=== PATIENT | male | born 1995 | race Caucasian/White ===

== ENCOUNTER 2016-05-02 10:19 | Emergency (ER) | payer OTHER ==
[~2016-05-02 10:19] MED LIST: HYDROmorphONE/DILAUDID 1 MG/ML SYR IVP ONE
[2016-05-02] MEDS ORDERED: NS 1,000 ML IV ONE ×2 (10:37→11:59)
[2016-05-02] MEDS ORDERED: ONDANSETRON 4 MG/2 ML VIAL IVP ONE ×3 (10:37→15:00)
[2016-05-02] MEDS ORDERED: HYDROmorphONE/DILAUDID 1 MG/ML SYR ONE ×2 (10:39→12:16)
[2016-05-02 10:55] LABS: % IMMATURE GRANULYOCYTES 0.3 % (0.0-1.1); ABSOLUTE IMMATURE GRANULOCYTES 0.03 10^3/uL (0.00-0.10); ADD DIFF? NO; ADD MORPH? NO; ADD SCAN? NO; ATYPICAL LYMPHOCYTE FLAG 20 (0-99); FRAGMENT RBC FLAG 0 (0-99); HEMATOCRIT 45.1 % (40.0-51.0); HEMOGLOBIN 16.7 g/dL (13.7-17.5); LEFT SHIFT FLG 10 (0-99); LIPEMIA HEMOLYSIS FLAG 90 (0-99); MEAN CELL HEMOGLOBIN 32.6 pg (27.9-34.1); MEAN CELL VOLUME 87.9 fL (81.5-99.8); MEAN PLATELET VOLUME 8.6 fL (8.7-11.7); PLATELET CLUMPS FLAG 0 (0-99); PLATELET COUNT 247 10^3/uL (150-400); RED BLOOD CELL COUNT 5.13 10^6/uL (4.40-6.38); RED CELL DISTRIBUTION WIDTH 11.5 % (11.5-15.2)
[2016-05-02 11:23] LABS: ANION GAP 12 mEq/L (8-16); CALCIUM 10.1 mg/dL (8.5-10.4); CARBON DIOXIDE 26 mEq/l (22-31); CHLORIDE 104 mEq/L (97-110); CREATININE 1.5 mg/dL (0.7-1.3); GLOMERULAR FILTRATION RATE 59; GLUCOSE 92 mg/dL (70-100); POTASSIUM 4.2 mEq/L (3.5-5.2); SODIUM 142 mEq/L (134-144)
--- NOTE | 2016-05-02 11:30 | EDPHY ---
H & P Stated Complaint: BILAT flank pain,nausea vominting, sudden onset this am HPI/ROS: CHIEF COMPLAINT: Flank pain HISTORY OF PRESENT ILLNESS: sudden onset of right-sided flank pain late last night. It is located right over the right CVA margin. Radiates to the right abdomen. No testicular pain. No trauma. No nausea or vomiting. Severe pain with no position of comfort. Worse with any palpation or movement. No alleviating factors. No history of kidney stones. No hematuria. No other associated complaints or modifying factors. REVIEW OF SYSTEMS: Ten systems reviewed and are negative unless otherwise noted in the HPI EXAMINATION General Appearance: Alert, no distress , comfortable, restless Head: normocephalic, atraumatic Eyes: Pupils equal and round, no conjunctival pallor or injection ENT, Mouth: Mucous membranes moist Neck: Normal inspection, supple, non-tender Respiratory: Lungs are clear to auscultation Cardiovascular: Regular rate and rhythm Gastrointestinal: Abdomen is soft and nontender, there is moderate right CVA tenderness. No tympany. No rigidity. Back: non-tender, no bony abnormalities Neurological: A&O, nonfocal, normal gait Skin: Warm and dry, no rash Extremities: Nontender, no pedal edema Psychiatric: Mood and affect normal DIFFERENTIAL DIAGNOSES: 1. Kidney stones 2. flank pain 3. UTI 4. musculoskeletal pain 5. Pyelonephritis MDM: Acute right flank pain with a benign abdominal examination. No testicular pain. Patient does have the history and exam consistent with kidney stone. Vital signs stable. Labs and CT scan are pending at this time. 13:40 Notified by radiologist that there is bilateral perinephric stranding, but there is very mild hydronephrosis, but there is no evidence of stone. No other intra-abdominal or pelvic pathology. Suspect pyelonephritis by CT scan. I have re-evaluated the patient at this time, he notes some nausea but no active vomiting. He is asking for intake by mouth. He has received 0.5 L of IV fluid. He does have leukocytosis, flank pain, and is having difficulty urinating. Will continue IV fluid resuscitation and await urinalysis. He is not tachycardic. He is not tachypneic. He is not hypotensive. He is afebrile. 14:45 I have re-evaluated the patient. He is feeling better and tolerating intake by mouth. He remains hemodynamically stable with completely normal vital signs. Labs revealed a leukocytosis with a very mildly elevated creatinine 1.5. CT scan as noted above. Urinalysis only has minimal blood. No definite pyuria. Possible pyelo versus stone. Patient would like to be discharged home. His pain is tolerated at this time. Discharged home with antibiotics, pain medication and nausea medication and strict ER precautions for worsening pain, fever, nausea or vomiting. Patient is comfortable with this plan and stable for discharge home. SUPERVISION: Independent evaluation. Source: Patient Exam Limitations: No limitations - Personal History Current Tetanus/Diphtheria Vaccine: Unsure Current Tetanus Diphtheria and Acellular Pertussis (TDAP): Unsure - Medical/Surgical History Hx Asthma: No Hx Chronic Respiratory Disease: No Hx Diabetes: No Hx Cardiac Disease: No Hx Renal Disease: No Hx Cirrhosis: No Hx Alcoholism: No Hx HIV/AIDS: No Hx Splenectomy or Spleen Trauma: No Other PMH: PMH:none. PSH:dental - Social History Smoking Status: Never smoked Constitutional: Initial Vital Signs Temperature (C) 97.5 F 05/02/16 10:22 Heart Rate 75 05/02/16 10:22 Respiratory Rate 16 05/02/16 10:22 Blood Pressure 144/104 H 05/02/16 10:22 O2 Sat (%) 98 05/02/16 10:22 O2 Delivery Mode Room Air Allergies/Adverse Reactions: No Known Allergies Allergy (Unverified 05/02/16 10:22) Home Medications: Medication Instructions Recorded Ciprofloxacin [Cipro] 500 mg PO BID #14 tab 05/02/16 Ondansetron Odt [Zofran Odt 4 mg 4 mg PO Q4 PRN #12 tab 05/02/16 (*)] oxyCODONE HCL/ACETAMINOPHEN 1 each PO Q4-6PRN PRN #20 tablet 05/02/16 [Percocet 5-325 mg Tablet] Medical Decision Making - Data Points Laboratory Results: Laboratory Results 05/02/16 10:35 05/02/16 10:35 05/02/16 05/02/16 14:00 10:35 WBC 10.95 H 10^3/uL (3.80-9.50) RBC 5.13 10^6/uL (4.40-6.38) Hgb 16.7 g/dL (13.7-17.5) Hct 45.1 % (40.0-51.0) MCV 87.9 fL (81.5-99.8) MCH 32.6 pg (27.9-34.1) MCHC 37.0 H g/dL (32.4-36.7) RDW 11.5 % (11.5-15.2) Plt Count 247 10^3/uL (150-400) MPV 8.6 L fL (8.7-11.7) Neut % (Auto) 72.6 % (39.3-74.2) Lymph % (Auto) 12.8 L % (15.0-45.0) [place] % (Auto) 11.9 % (4.5-13.0) Eos % (Auto) 2.0 % (0.6-7.6) Baso % (Auto) 0.4 % (0.3-1.7) Nucleat RBC Rel Count 0.0 % (0.0-0.2) Absolute Neuts (auto) 7.96 H 10^3/uL (1.70-6.50) Absolute Lymphs (auto) 1.40 10^3/uL (1.00-3.00) Absolute Monos (auto) 1.30 H 10^3/uL (0.30-0.80) Absolute Eos (auto) 0.22 10^3/uL (0.03-0.40) Absolute Basos (auto) 0.04 10^3/uL (0.02-0.10) Absolute Nucleated RBC 0.00 10^3/uL (0-0.01) Immature Gran % 0.3 % (0.0-1.1) Immature Gran # 0.03 10^3/uL (0.00-0.10) Sodium 142 mEq/L (134-144) Potassium 4.2 mEq/L (3.5-5.2) Chloride 104 mEq/L (97-110) Carbon Dioxide 26 mEq/l (22-31) Anion Gap 12 mEq/L (8-16) BUN 10 mg/dL (7-23) Creatinine 1.5 H mg/dL (0.7-1.3) Estimated GFR 59 Glucose 92 mg/dL (70-100) Calcium 10.1 mg/dL (8.5-10.4) Lipase 112.0 IU/L (23-300) Urine Color PALE YELLOW Urine Appearance CLEAR Urine pH 6.0 (5.0-7.5) Ur Specific [place] 1.004 (1.002-1.030) Urine Protein NEGATIVE (NEGATIVE) Urine Ketones NEGATIVE (NEGATIVE) Urine Blood 1+ H (NEGATIVE) Urine Nitrate NEGATIVE (NEGATIVE) Urine Bilirubin NEGATIVE (NEGATIVE) Urine Urobilinogen NEGATIVE EU (0.2-1.0) Ur Leukocyte Esterase NEGATIVE (NEGATIVE) Urine RBC 1-3 /hpf (0-3) Urine WBC 1-3 /hpf (0-3) Ur Epithelial Cells TRACE /lpf (NONE-1+) Ur Culture Indicated? NOT INDICATED (NI) Urine Glucose NEGATIVE (NEGATIVE) Medications Given: Discontinued Medications Hydromorphone HCl (Dilaudid) 1 mg IVP EDNOW ONE Stop: 05/02/16 08:01 Last Admin: 05/02/16 10:40 Dose: 1 mg Hydromorphone HCl (Dilaudid) 1 mg IVP EDNOW ONE Stop: 05/02/16 08:01 Last Admin: 05/02/16 12:24 Dose: 1 mg Sodium Chloride (Ns) 1,000 mls @ 0 mls/hr IV ONCE ONE PRN Reason: Wide Open Stop: 05/02/16 10:38 Last Admin: 05/02/16 10:37 Dose: 1,000 mls Sodium Chloride (Ns) 1,000 mls @ 0 mls/hr IV ONCE ONE PRN Reason: Wide Open Stop: 05/02/16 12:00 Last Admin: 05/02/16 12:21 Dose: 1,000 mls Ondansetron HCl (Zofran) 4 mg IVP EDNOW ONE Stop: 05/02/16 10:38 Last Admin: 05/02/16 10:40 Dose: 4 mg Ondansetron HCl (Zofran) 4 mg IVP EDNOW ONE Stop: 05/02/16 12:15 Last Admin: 05/02/16 12:15 Dose: 4 mg Departure - Departure Disposition: Home, Routine, Self-Care Clinical Impression: Acute flank pain, Pyelonephritis Condition: Good Instructions: Urinary Tract Infection in Men (ED), Flank Pain (ED) Additional Instructions: Take antibiotic to completion. Nausea medication and pain medication as prescribed with caution. Strict ER precautions for worsening pain, fever, vomiting or difficulty urinating. Prescriptions: Ciprofloxacin [Cipro] 500 mg PO BID #14 tab oxyCODONE HCL/ACETAMINOPHEN [Percocet 5-325 mg Tablet] 1 each PO Q4-6PRN PRN # 20 tablet PRN Reason: Pain, Moderate Ondansetron Odt [Zofran Odt 4 mg (*)] 4 mg PO Q4 PRN #12 tab PRN Reason: Nausea/Vomiting, Use 1st
--- NOTE | 2016-05-02 13:57 | CT ---
CT Abdomen and Pelvis Unenhanced (Renal Stone Protocol) Indication: Bilateral flank pain. Comparison: None available. Technique: Axial unenhanced CT imaging was performed through the abdomen and pelvis without contrast . Dose reduction techniques were utilized. Findings: Abdomen: The lung bases are clear. The imaged noncontrast portions of the liver, gallbladder, pancreas and adrenal glands are unremarkab le. The spleen is enlarged, measuring 14 cm. There is prominent perinephric stranding bilaterally, w ith no renal or ureteral stones and no obstructive uropathy. Renal assessment is limited by the unenh anced technique. Moderate stool is present in the proximal colon. The colon and small bowel are normal caliber. The ap pendix is normal. The aorta is normal caliber. The bones are normal. Pelvis: No bladder or distal ureteral calcifications are identified. The bones are normal. Impression: 1. Nonspecific bilateral perinephric stranding with no obstructive uropathy or renal or ureteral ston es. This could be related to pyelonephritis but is nonspecific. 2. Mild splenomegaly. Findings discussed with DOMINIQUE Mansfield in the Emergency Department today at 1350 hours. Attention: This CT examination is specifically designed to evaluate patients who are clinically susp ected of having acute obstructive uropathy. This examination does not use radiographic contrast, and as such, provides only a limited evaluation of the abdomen, pelvis and retroperitoneum. If there i s further clinical suspicion for pathological conditions other than obstructive uropathy, a complete CT evaluation of the abdomen and pelvis utilizing intravenous, oral, and rectal contrast should be co nsidered.
[2016-05-02] MEDS ORDERED: CIPROFLOXACIN 400 MG/DEXTROSE 200 ML IV ONE (14:13)
[2016-05-02 14:19] LABS: COLOR PALE YELLOW; LEUKOCYTE ESTERASE,URINE NEGATIVE (NEGATIVE); NITRITE,URINE NEGATIVE (NEGATIVE)
[2016-05-02] MEDS ORDERED: OXYCODONE/APAP 5/325 TAB PO ONE (14:44)
[2016-05-02] MEDS ORDERED: HYDROmorphONE/DILAUDID 1 MG/ML SYR IVP ONE (14:44)
[2016-05-02] MEDS ORDERED: PROMETHAZINE HCL 25 MG/ML VIAL IM ONE (15:00)
[2016-05-02] MEDS ORDERED: PROMETHAZINE HCL 25 MG/ML VIAL IVP ONE (15:06)
[2016-05-02] MEDS ORDERED: HALOPERIDOL LACT 5 MG/ML INJ IVP ONE (17:33)
[2016-05-02] MEDS ORDERED: HALOPERIDOL LACT 5 MG/ML INJ ONE (17:34)
[2016-05-02 19:01] VITALS: BP 158/96; PULSE 58; RESP 14; TEMP 98.4; O2SAT 92
[2016-05-04 08:24] LABS: CHLAMYDIA AMPLIFICATION GENPRB NEGATIVE (NEGATIVE)
== END 2016-05-02 19:01 | disposition home or self-care (01) ==
DX: N12 Tubulo-interstitial nephritis, not specified as acute or chronic (principal)
CPT/HCPCS: 96365; J0744; J1170; J2405; J2550

== ENCOUNTER 2016-05-04 20:51 | Observation (INO) | payer OTHER ==
[2016-05-04] MEDS ORDERED: NS 1,000 ML IV ONE ×2 (21:14→23:46)
[2016-05-04] MEDS ORDERED: ONDANSETRON 4 MG/2 ML VIAL IVP ONE (21:29)
[2016-05-04 21:42] LABS: % IMMATURE GRANULYOCYTES 0.3 % (0.0-1.1); ABSOLUTE IMMATURE GRANULOCYTES 0.03 10^3/uL (0.00-0.10); ADD DIFF? NO; ADD MORPH? NO; ADD SCAN? NO; ATYPICAL LYMPHOCYTE FLAG 0 (0-99); FRAGMENT RBC FLAG 0 (0-99); HEMOGLOBIN 14.5 g/dL (13.7-17.5); LEFT SHIFT FLG 0 (0-99); LIPEMIA HEMOLYSIS FLAG 90 (0-99); MEAN CELL HEMOGLOBIN CONCENTR. 37.2 g/dL (32.4-36.7); MEAN CELL VOLUME 88.6 fL (81.5-99.8); MEAN PLATELET VOLUME 8.2 fL (8.7-11.7); PLATELET CLUMPS FLAG 0 (0-99); PLATELET COUNT 209 10^3/uL (150-400); RED CELL DISTRIBUTION WIDTH 11.5 % (11.5-15.2)
[2016-05-04 21:57] LABS: ALANINE AMINOTRANSFERASE 33 IU/L (21-72); ALBUMIN 3.7 g/dL (3.5-5.0); ALKALINE PHOSPHATASE 47 IU/L (38-126); ANION GAP 8 mEq/L (8-16); ASPARTATE AMINOTRANSFERASE 25 IU/L (17-59); BILIRUBIN,TOTAL 0.7 mg/dL (0.1-1.4); BILIRUBIN-CONJUGATED 0.3 mg/dL (0.0-0.5); BILIRUBIN-UNCONJUGATED 0.4 mg/dL (0.0-1.1); CALCIUM 8.7 mg/dL (8.5-10.4); CARBON DIOXIDE 29 mEq/l (22-31); CHLORIDE 100 mEq/L (97-110); GLOMERULAR FILTRATION RATE 42; GLUCOSE 82 mg/dL (70-100); POTASSIUM 3.8 mEq/L (3.5-5.2); SODIUM 137 mEq/L (134-144); TOTAL PROTEIN 6.7 g/dL (6.3-8.2)
--- NOTE | 2016-05-04 22:09 | EDPHY ---
H & P Stated Complaint: ongoing flank pain, recent infection - Personal History Current Tetanus/Diphtheria Vaccine: Yes - Medical/Surgical History Hx Asthma: No Hx Chronic Respiratory Disease: No Hx Diabetes: No Hx Cardiac Disease: No Hx Renal Disease: No Hx Cirrhosis: No Hx Alcoholism: No Hx HIV/AIDS: No Hx Splenectomy or Spleen Trauma: No Other PMH: PMH:kidney infection. PSH:dental - Social History Smoking Status: Never smoked HPI/ROS: CHIEF COMPLAINT: Flank pain, abdominal pain, nausea HISTORY OF PRESENT ILLNESS: approximately 1 week of flank pain, for which I saw the patient 2 days ago in this department. Upon discharge home he was feeling much better on Sunday until yesterday morning. At that time the flank pain returned and instead of being right-sided now bilateral. Associated with some nausea but no vomiting. Mild to moderate pain. Worse with palpation and movement. No position of comfort. No radiating pain. Generalized abdominal pain accompanied. No fever. No chills. No hematuria. No diarrhea or constipation. Has been taking the prescribed medications since Sunday, they are no longer improving his pain. No other associated complaints or modifying factors. REVIEW OF SYSTEMS: Ten systems reviewed and are negative unless otherwise noted in the HPI EXAMINATION: General Appearance: Alert, no distress Head: normocephalic, atraumatic Eyes: Pupils equal and round, no conjunctival pallor or injection ENT, Mouth: Mucous membranes moist Neck: Normal inspection, supple, non-tender Respiratory: Lungs are clear to auscultation Cardiovascular: Regular rate and rhythm Gastrointestinal: Abdomen is soft and nontender. Mild bilateral CVA tenderness.No tympany. No rigidity. Non-acute abdomen. Back: non-tender, no bony abnormalities Neurological: A&O, nonfocal, normal gait Skin: Warm and dry, no rash Extremities: Nontender, no pedal edema Psychiatric: Mood and affect normal DIFFERENTIAL DIAGNOSES: Including but not limited to UTI, Pyelonephritis, renal lithiasis, ureterolithiasis. MDM: Ongoing flank and abdominal pain. Patient was seen by this provider 2 days ago. At that time he was offered admission but preferred to be discharged home. He was stable for discharge home at that time, and reports that he was feeling much better that evening. However he now has return of his pain and nausea but no vomiting. Vital signs are stable. Labs are pending at this time. 23:45 Acute kidney injury of uncertain etiology. Patient has an improving leukocytosis, but his creatinine has gone up to 2.0 today. We are providing IV fluid resuscitation. His pain is minimally improved. I will contact the hospitalist for admission for further care. Patient is comfortable with this plan and will be admitted in stable condition. 12:08 I discussed the case with Dr. Warner, and she will admit the patient to observation status at this time. Patient remains hemodynamically stable. SUPERVISION:Patient was evaluated in conjunction with the supervising physician. Please see their note for details. (Mynor Lu) Constitutional: Initial Vital Signs Temperature (C) 36.9 C 05/04/16 20:53 Heart Rate 95 05/04/16 20:53 Respiratory Rate 19 05/04/16 20:53 Blood Pressure 139/88 H 05/04/16 20:53 O2 Sat (%) 96 05/04/16 20:53 O2 Delivery Mode Nasal Cannula O2 (L/minute) 2 Allergies/Adverse Reactions: No Known Allergies Allergy (Unverified 05/02/16 10:22) Home Medications: Medication Instructions Recorded Ciprofloxacin [Cipro] 500 mg PO BID #14 tab 05/02/16 Ondansetron Odt [Zofran Odt 4 mg 4 mg PO Q4 PRN #12 tab 05/02/16 (*)] oxyCODONE HCL/ACETAMINOPHEN 1 each PO Q4-6PRN PRN #20 tablet 05/02/16 [Percocet 5-325 mg Tablet] Medical Decision Making Other Provider: ED PA DICTATION I evaluated and participated in the management of the patient. I also evaluated the patient independently. My co-signature indicates that I have reviewed this chart and I agree with the findings and plan of care as documented. My personal H&P findings include: This is a 20-year-old man who presents with now bilateral flank pain associated with nausea. He was seen a few days ago here and had a CT scan showing fat stranding surrounding both kidneys, UA was unremarkable except for small amount of hematuria. He went home on ciprofloxacin but was not feeling any better, so returns now to the emergency room. Here, he has a slight elevation in his creatinine. It is unclear if his presentation is related to pyelonephritis with normal UA verses other kidney problem such as glomerulonephritis. He will be admitted to the hospitalist service for observation and IV fluids. He is in agreement with this plan. (Alice Walters) - Data Points Laboratory Results: Laboratory Results 05/04/16 21:35 05/04/16 21:35 05/04/16 05/04/16 22:58 21:35 WBC 10.00 H 10^3/uL (3.80-9.50) RBC 4.40 10^6/uL (4.40-6.38) Hgb 14.5 g/dL (13.7-17.5) Hct 39.0 L % (40.0-51.0) MCV 88.6 fL (81.5-99.8) MCH 33.0 pg (27.9-34.1) MCHC 37.2 H g/dL (32.4-36.7) RDW 11.5 % (11.5-15.2) Plt Count 209 10^3/uL (150-400) MPV 8.2 L fL (8.7-11.7) Neut % (Auto) 56.6 % (39.3-74.2) Lymph % (Auto) 28.0 % (15.0-45.0) [place] % (Auto) 12.4 % (4.5-13.0) Eos % (Auto) 2.3 % (0.6-7.6) Baso % (Auto) 0.4 % (0.3-1.7) Nucleat RBC Rel Count 0.0 % (0.0-0.2) Absolute Neuts (auto) 5.66 10^3/uL (1.70-6.50) Absolute Lymphs (auto) 2.80 10^3/uL (1.00-3.00) Absolute Monos (auto) 1.24 H 10^3/uL (0.30-0.80) Absolute Eos (auto) 0.23 10^3/uL (0.03-0.40) Absolute Basos (auto) 0.04 10^3/uL (0.02-0.10) Absolute Nucleated RBC 0.00 10^3/uL (0-0.01) Immature Gran % 0.3 % (0.0-1.1) Immature Gran # 0.03 10^3/uL (0.00-0.10) VBG Lactic Acid 0.6 L mmol/L (0.7-2.1) Sodium 137 mEq/L (134-144) Potassium 3.8 mEq/L (3.5-5.2) Chloride 100 mEq/L (97-110) Carbon Dioxide 29 mEq/l (22-31) Anion Gap 8 mEq/L (8-16) BUN 18 mg/dL (7-23) Creatinine 2.0 H mg/dL (0.7-1.3) Estimated GFR 42 Glucose 82 mg/dL (70-100) Calcium 8.7 mg/dL (8.5-10.4) Total Bilirubin 0.7 mg/dL (0.1-1.4) Conjugated Bilirubin 0.3 mg/dL (0.0-0.5) Unconjugated Bilirubin 0.4 mg/dL (0.0-1.1) AST 25 IU/L (17-59) ALT 33 IU/L (21-72) Alkaline Phosphatase 47 IU/L (38-126) Total Protein 6.7 g/dL (6.3-8.2) Albumin 3.7 g/dL (3.5-5.0) Lipase 94.0 IU/L (23-300) Urine Color PALE YELLOW Urine Appearance CLEAR Urine pH 6.0 (5.0-7.5) Ur Specific [place] 1.003 (1.002-1.030) Urine Protein NEGATIVE (NEGATIVE) Urine Ketones NEGATIVE (NEGATIVE) Urine Blood 1+ H (NEGATIVE) Urine Nitrate NEGATIVE (NEGATIVE) Urine Bilirubin NEGATIVE (NEGATIVE) Urine Urobilinogen NEGATIVE EU (0.2-1.0) Ur Leukocyte Esterase NEGATIVE (NEGATIVE) Urine RBC 1-3 /hpf (0-3) Urine WBC 1-3 /hpf (0-3) Ur Epithelial Cells TRACE /lpf (NONE-1+) Urine Bacteria TRACE H /hpf (NONE SEEN) Ur Culture Indicated? NOT INDICATED (NI) Urine Glucose NEGATIVE (NEGATIVE) Medications Given: Discontinued Medications Fentanyl (Sublimaze) 75 mcg IV EDNOW ONE Stop: 05/04/16 23:51 Last Admin: 05/04/16 23:57 Dose: 75 mcg Sodium Chloride (Ns) 1,000 mls @ 0 mls/hr IV ONCE ONE PRN Reason: Wide Open Stop: 05/04/16 21:15 Last Admin: 05/04/16 21:33 Dose: 1,000 mls Sodium Chloride (Ns) 1,000 mls @ 0 mls/hr IV ONCE ONE PRN Reason: Wide Open Stop: 05/04/16 23:47 Last Admin: 05/04/16 23:57 Dose: 1,000 mls Morphine Sulfate (Morphine) 6 mg IVP Q1HR PRN PRN Reason: Pain, Moderate Stop: 05/04/16 22:01 Last Admin: 05/05/16 01:30 Dose: 4 mg Ondansetron HCl (Zofran) 4 mg IVP EDNOW ONE Stop: 05/04/16 21:30 Last Admin: 05/04/16 21:40 Dose: 4 mg Departure - Departure Disposition: [facility] Inpatient Acute Clinical Impression: Flank pain, Abdominal pain, Acute kidney injury (nontraumatic) Condition: Good
[2016-05-04 23:14] LABS: COLOR PALE YELLOW; LEUKOCYTE ESTERASE,URINE NEGATIVE (NEGATIVE); NITRITE,URINE NEGATIVE (NEGATIVE)
[2016-05-04 23:39] LABS: BACTERIA TRACE /hpf (NONE SEEN)
[2016-05-04] MEDS ORDERED: fentaNYL 100 MCG/2 ML INJ IV ONE (23:50)
[2016-05-04] MEDS ORDERED: fentaNYL 100 MCG/2 ML INJ ONE (23:52)
[2016-05-05] MEDS ORDERED: PROMETHAZINE HCL 25 MG/ML VIAL IVP PRN ×2 (02:40→09:49)
[2016-05-05] MEDS ORDERED: oxyCODONE IR 5 MG TAB PO PRN (02:40)
[2016-05-05] MEDS ORDERED: ONDANSETRON 4 MG/2 ML VIAL IVP PRN ×2 (02:40→09:49)
[2016-05-05] MEDS ORDERED: ACETAMINOPHEN 325 MG TAB PO PRN (02:40)
[2016-05-05] MEDS ORDERED: NS 1,000 ML IV SCH (02:45)
--- NOTE | 2016-05-05 03:07 | GHP ---
[f rep st] HISTORY AND PHYSICAL DATE OF ADMISSION: 05/05/2016 CHIEF COMPLAINT: Flank pain. HISTORY: The patient is a 20-year-old male seen in the emergency room 2 days ago for right-sided fla nk pain. This was radiating to the right side of his abdomen. There was no testicular pain. He got a CT scan of the abdomen that was negative for stone, but it did show some bilateral perinephric str anding and mild hydronephrosis. His urinalysis was negative for infection. He was treated for nause a and discharged from the emergency room. He now re-presents to the emergency room with worsening of the pain. It is now on his bilateral flan ks. He has had ongoing nausea, as well as some vomiting. He denies any changes in his urine. PAST MEDICAL HISTORY: Negative. PAST SURGICAL HISTORY: [place] teeth. MEDICATIONS: Please see computer record for full detailed list. ALLERGIES: No known drug allergies. SOCIAL HISTORY: He is a daily smoker of marijuana. No tobacco, occasional alcohol. He is a student at [employer], lives in an apartment. His parents are in [place]. REVIEW OF SYSTEMS: Complete review of systems obtained. Review of systems is negative for constitut ional, HEENT, GI, pulmonary, cardiovascular, , hematology, musculoskeletal, endocrine, and psych, e xcept for positive and negative as in HPI. FAMILY HISTORY: Both his parents are alive and healthy. He denies any significant family history. PHYSICAL EXAMINATION: GENERAL: Well-developed, well-nourished male, in no acute distress. VITAL SI GNS: Temperature is 36.9, pulse 81, blood pressure 152/96, saturating 96% on room air. EYES: Ruchi l conjunctivae. Pupils react to light. ENT: Normal ears and nose. Hearing intact. Normal teeth. Oropharynx moist. NECK: Trachea midline. No thyromegaly. CHEST: Normal. RESPIRATORY: Lungs cl ear to auscultation bilaterally. CARDIOVASCULAR: Regular rhythm. No murmur. No lower extremity ed pippa. ABDOMEN: Soft. Minimal tenderness. No hepatosplenomegaly. SKIN: Warm, dry, intact. No rick h. MUSCULOSKELETAL: No cyanosis or clubbing. Strength 5/5 of all extremities. NEURO: Cranial ner ves intact. Normal sensation to light touch. PSYCHOSOCIAL: Alert and oriented x3. Normal affect. Normal judgment and insight. Normal memory. LABORATORY DATA: White count of 10.8, hematocrit 39.0, platelets 209. Sodium 137, potassium 3.8, ch loride 100, bicarb 29, BUN 18, creatinine 2.0, glucose 82. LFTs are negative. Lipase 94. Lactate 0 .6. Urinalysis is negative except for 1+ blood. CT scan of the abdomen and pelvis from 2 days ago w as reviewed. There was some perinephric stranding and some hydro, and there was concern for possible pyelonephritis. ASSESSMENT/PLAN: 1. Acute renal failure. I suspect he is dehydrated. Will hydrate overnight with IV fluids and rech eric in the morning. 2. Bilateral flank pain. Urinalysis is negative for infection essentially ruling out pyelonephritis . CT scan has been negative for stone. Interestingly, he did have some hydronephrosis on CAT scan, however, of unclear etiology. I will check a followup renal ultrasound, especially since his pain skinner s increased and is now bilateral. He is requesting IV morphine for pain, and he appears uncomfortabl e so will continue. 3. Obesity. BMI 33. Weight loss should be advised. CODE STATUS: Full. ADMISSION STATUS: 1. Will admit to observation. Anticipate only 1 midnight required. 2. DVT prophylaxis. He is low risk. We will hold off on any pharmacologic prophylaxis at this time . /[id number]/MODL
[2016-05-05] MEDS ORDERED: oxyCODONE IR 5 MG TAB ONE (03:27)
[2016-05-05 06:20] LABS: % IMMATURE GRANULYOCYTES 0.3 % (0.0-1.1); ABSOLUTE IMMATURE GRANULOCYTES 0.03 10^3/uL (0.00-0.10); ADD DIFF? NO; ADD MORPH? NO; ADD SCAN? NO; ATYPICAL LYMPHOCYTE FLAG 0 (0-99); FRAGMENT RBC FLAG 0 (0-99); HEMATOCRIT 36.9 % (40.0-51.0); HEMOGLOBIN 13.3 g/dL (13.7-17.5); LEFT SHIFT FLG 10 (0-99); LIPEMIA HEMOLYSIS FLAG 90 (0-99); MEAN CELL HEMOGLOBIN 32.3 pg (27.9-34.1); MEAN CELL VOLUME 89.6 fL (81.5-99.8); MEAN PLATELET VOLUME 8.3 fL (8.7-11.7); PLATELET CLUMPS FLAG 0 (0-99); PLATELET COUNT 202 10^3/uL (150-400); RED BLOOD CELL COUNT 4.12 10^6/uL (4.40-6.38); RED CELL DISTRIBUTION WIDTH 11.4 % (11.5-15.2)
[2016-05-05 06:47] LABS: ANION GAP 10 mEq/L (8-16); CALCIUM 8.1 mg/dL (8.5-10.4); CARBON DIOXIDE 27 mEq/l (22-31); CHLORIDE 104 mEq/L (97-110); CREATININE 1.7 mg/dL (0.7-1.3); GLOMERULAR FILTRATION RATE 51; GLUCOSE 92 mg/dL (70-100); POTASSIUM 4.2 mEq/L (3.5-5.2); SODIUM 141 mEq/L (134-144)
--- NOTE | 2016-05-05 08:21 | US ---
Renal Sonogram Clinical Indications: Follow up hydronephrosis. Findings: The right kidney measures 6.3 x 6.1 x 1.1 cm with the cortex measuring 2.3 cm. No masses are identified, and there is no hydronephrosis. There are no pararenal lesions. The left kidney ramsey sures 5.3 x 5.4 x 12.8 cm with the cortex measuring 2.2 cm. No masses are identified, and there is n o hydronephrosis. There are no pararenal lesions. The kidneys are mildly increased in echogenicity. Prevoid bladder volume is 1049. Postvoid bladder volume is 44 cm. Impression: Mild increase in renal echogenicity which is a nonspecific finding. Differential includes medical renal disease, diabetic nephropathy, glomerulonephritis or pyelonephritis. No evidence of ob struction.
[2016-05-05] MEDS ORDERED: ONDANSETRON DISINTEGRATING 4 MG TAB PO PRN (09:04)
[2016-05-05] MEDS ORDERED: PROMETHAZINE HCL 25 MG/ML VIAL ONE (09:18)
[2016-05-05] MEDS ORDERED: PROMETHAZINE HCL 25 MG/ML VIAL IVP ONE (09:29)
[2016-05-05 09:31] LABS: HEMATOCRIT 37.1 % (40.0-51.0)
[2016-05-05] MEDS ORDERED: PROMETHAZINE HCL 25 MG TAB PO PRN (09:49)
[2016-05-05] MEDS ORDERED: PROCHLORPERAZINE MALEATE 10 MG TAB PO PRN (09:49)
[2016-05-05] MEDS ORDERED: NS 2,000 ML IV SCH (09:49)
[2016-05-05 09:54] LABS: C-REACTIVE PROTEIN 13.8 mg/L (<10.0)
[2016-05-05] MEDS: oxyCODONE IR 5 MG TAB PO PRN ×3 (10:50→22:38)
[2016-05-05] MEDS ORDERED: LORazepam 2 MG/ML INJ IVP PRN (12:29)
--- NOTE | 2016-05-05 15:06 | HOSPPROG ---
Hospitalist Progress Note Assessment/Plan: Prolonged service, direct patient care, [id number] with patient at bedside, 35 minutes from 9:10 a.m. to 9:45 a.m., addressing these issues outlined below: -patient with ongoing bilateral flank pain and tenderness to palpation, ongoing nausea -treat supportively with IV fluids at 200 cc an hour, IV antiemetics, IV pain medications -adjust diet to clear liquids and advance as tolerates -sent urinalysis this morning which demonstrated persistent 1+ blood as well as fractional excretion of sodium of 4% -JEANNINE sent and pending, HIV test negative, hepatitis panel negative, CRP moderately elevated, CPK negative -renal ultrasound does not demonstrate any evidence of hydronephrosis so lower urinary tract obstruction is less likely -there is a perinephric stranding on the initial CT from 05/02/2016 as well as edematous appearing inflamed kidneys on the ultrasound -I have discussed the patient's presentation with Dr. Jimenez and she will consult from the Nephrology Service -monitor strict I&Os, repeat serum chemistry at this time -is unclear whether the patient is experiencing acute glomerulonephritis, as this would be an atypical presentation given his symptomatic pain -that being said, there is no evidence of kidney stone on either the CT stone protocol from 05/02/2016 or on the ultrasound performed this morning and his urinalysis does not seem to indicate any infection -of note, the patient does have a suspected history of psoriasis is unclear whether patient's recent renal involvement may be from undiagnosed underlying inflammatory condition Subjective: Patient continues to experience abdominal pain and nausea Objective: Vital Signs Temp Pulse Resp BP Pulse Ox 36.7 C 87 18 158/91 H 92 05/05/16 12:35 05/05/16 12:35 05/05/16 12:35 05/05/16 12:35 05/05/16 12:35 Laboratory Results 05/05/16 06:07 05/05/16 06:07 05/04/16 05/05/16 05/06/16 05:59 05:59 05:59 Intake Total 3000 Output Total 850 Balance 2150 - Physical Exam Gastrointestinal: normoactive bowel sounds, other (Tenderness bilateral flanks) , No distension Skin: other (Scattered psoriatic plaques on the abdomen) Neurologic: AAOx3 ICD10 Worksheet Patient Problems: Problems Problem Status Diagnosed Abdominal pain Acute Acute kidney injury (nontraumatic) Acute Flank pain Acute
[2016-05-05 16:49] LABS: ANION GAP 9 mEq/L (8-16); CARBON DIOXIDE 24 mEq/l (22-31); CHLORIDE 107 mEq/L (97-110); CREATININE 1.3 mg/dL (0.7-1.3); GLOMERULAR FILTRATION RATE > 60; GLUCOSE 81 mg/dL (70-100); POTASSIUM 4.1 mEq/L (3.5-5.2); SODIUM 140 mEq/L (134-144)
[2016-05-05] MEDS: LORazepam 0.5 MG TAB PO PRN ×2 (17:11→22:39)
--- NOTE | 2016-05-05 17:13 | PDGENHP ---
History and Physical - Chief Complaint JEANNE - History of Present Illness Mr. Vogel is a 20 yo M with no significant past medical history who presented yesterday with complaints of back pain, N/V, and found to have worsening JEANNE. Pt states that it started on Sunday morning, he was woken up by severe back pain in bilateral flanks that he has never had before. That day he started to have nausea and vomiting. He came to ER, CT scan showed some perinephric stranding but no hydro or obstructing stone, otherwise just splenomegaly. Pt was given pain meds, abx and antiemetics and sent home, at that time his Cr was 1.5. On Sunday he was having some pain and nausea but was able to keep things down, not as much vomiting with the antiemetics. He states he was taking nothing else OTC. Yesterday his nausea and vomiting became worse, he developed chills and was worried he had a fever so he came into ER. This time, his Cr was 2.0, noted to have +1 blood on his UA. His abx were stopped and he was given IVFs, Cr down to 1.7 this am but FeNa 4%. Cr is now down to 1.3. He still has pain but no more vomiting, feeling hungry. History Information - Allergies/Home Medication List Allergies/Adverse Reactions: No Known Allergies Allergy (Unverified 05/02/16 10:22) I have personally reviewed and updated: medical history - Past Medical History Additional medical history: h/o concussions. Back pain - Surgical History Additional surgical history: [place] teeth removed - Family History Additional family history: No renal disease - Social History Smoking Status: Never smoked Drug Use: Marijuana Review of Systems ROS: 10pt was reviewed & negative except for what was stated in HPI & below Physical Exam Temp Pulse Resp BP Pulse Ox 37.2 C 103 H 18 139/83 H 96 05/05/16 15:42 05/05/16 15:42 05/05/16 15:42 05/05/16 15:42 05/05/16 15:42 O2 (L/minute) 3 Constitutional: no apparent distress, appears nourished, not in pain Eyes: PERRL, anicteric sclera, EOMI Ears, Nose, Mouth, Throat: moist mucous membranes, no oral mucosal ulcers Cardiovascular: regular rate and rhythym, no murmur, rub, or gallop, No edema Peripheral Pulses: 2+: dorsalis-pedis (R), dorsalis-pedis (L) Respiratory: no respiratory distress, no rales or rhonchi, clear to auscultation Gastrointestinal: normoactive bowel sounds, soft, non-tender abdomen, other (no flank tenderness to palpation) Skin: warm, other (psoriatic plaques) Musculoskeletal: full muscle strength, normal joint ROM, no joint effusions Neurologic: AAOx3, CN II-XII Intact, No asterixes Psychiatric: interacting appropriately, not anxious, not encephalopathic, thought process linear Lab Data & Imaging Review 05/05/16 06:07 05/05/16 16:15 WBC 10.32 10^3/uL (3.80-9.50) H 05/05/16 06:07 RBC 4.12 10^6/uL (4.40-6.38) L 05/05/16 06:07 Hgb 13.3 g/dL (13.7-17.5) L 05/05/16 06:07 Hct 37.1 % (40.0-51.0) L 05/05/16 06:07 MCV 89.6 fL (81.5-99.8) 05/05/16 06:07 MCH 32.3 pg (27.9-34.1) 05/05/16 06:07 MCHC 36.0 g/dL (32.4-36.7) 05/05/16 06:07 RDW 11.4 % (11.5-15.2) L 05/05/16 06:07 Plt Count 202 10^3/uL (150-400) 05/05/16 06:07 MPV 8.3 fL (8.7-11.7) L 05/05/16 06:07 Neut % (Auto) 66.0 % (39.3-74.2) 05/05/16 06:07 Lymph % (Auto) 19.0 % (15.0-45.0) 05/05/16 06:07 [place] % (Auto) 12.3 % (4.5-13.0) 05/05/16 06:07 Eos % (Auto) 2.0 % (0.6-7.6) 05/05/16 06:07 Baso % (Auto) 0.4 % (0.3-1.7) 05/05/16 06:07 Nucleat RBC Rel Count 0.0 % (0.0-0.2) 05/05/16 06:07 Absolute Neuts (auto) 6.81 10^3/uL (1.70-6.50) H 05/05/16 06:07 Absolute Lymphs (auto) 1.96 10^3/uL (1.00-3.00) 05/05/16 06:07 Absolute Monos (auto) 1.27 10^3/uL (0.30-0.80) H 05/05/16 06:07 Absolute Eos (auto) 0.21 10^3/uL (0.03-0.40) 05/05/16 06:07 Absolute Basos (auto) 0.04 10^3/uL (0.02-0.10) 05/05/16 06:07 Absolute Nucleated RBC 0.00 10^3/uL (0-0.01) 05/05/16 06:07 Immature Gran % 0.3 % (0.0-1.1) 05/05/16 06:07 Immature Gran # 0.03 10^3/uL (0.00-0.10) 05/05/16 06:07 ESR 12 MM/HR (0-15) 05/05/16 06:07 VBG Lactic Acid 0.6 mmol/L (0.7-2.1) L 05/04/16 21:35 Sodium 140 mEq/L (134-144) 05/05/16 16:15 Potassium 4.1 mEq/L (3.5-5.2) 05/05/16 16:15 Chloride 107 mEq/L (97-110) 05/05/16 16:15 Carbon Dioxide 24 mEq/l (22-31) 05/05/16 16:15 Anion Gap 9 mEq/L (8-16) 05/05/16 16:15 BUN 11 mg/dL (7-23) 05/05/16 16:15 Creatinine 1.3 mg/dL (0.7-1.3) 05/05/16 16:15 Estimated GFR > 60 05/05/16 16:15 Glucose 81 mg/dL (70-100) 05/05/16 16:15 Calcium 8.0 mg/dL (8.5-10.4) L 05/05/16 16:15 Total Bilirubin 0.7 mg/dL (0.1-1.4) 05/04/16 21:35 Conjugated Bilirubin 0.3 mg/dL (0.0-0.5) 05/04/16 21:35 Unconjugated Bilirubin 0.4 mg/dL (0.0-1.1) 05/04/16 21:35 AST 25 IU/L (17-59) 05/04/16 21:35 ALT 33 IU/L (21-72) 05/04/16 21:35 Alkaline Phosphatase 47 IU/L (38-126) 05/04/16 21:35 Creatine Kinase 60 IU/L (0-224) 05/05/16 06:07 C-Reactive Protein 13.8 mg/L (<10.0) H 05/05/16 06:07 Total Protein 6.7 g/dL (6.3-8.2) 05/04/16 21:35 Albumin 3.7 g/dL (3.5-5.0) 05/04/16 21:35 Lipase 94.0 IU/L (23-300) 05/04/16 21:35 TSH 2.000 uIU/mL (0.465-4.680) 05/05/16 06:07 Urine Color PALE YELLOW 05/04/16 22:58 Urine Appearance CLEAR 05/04/16 22:58 Urine pH 6.0 (5.0-7.5) 05/04/16 22:58 Ur Specific [place] 1.003 (1.002-1.030) 05/04/16 22:58 Urine Protein NEGATIVE (NEGATIVE) 05/04/16 22:58 Urine Ketones NEGATIVE (NEGATIVE) 05/04/16 22:58 Urine Blood 1+ (NEGATIVE) H 05/04/16 22:58 Urine Nitrate NEGATIVE (NEGATIVE) 05/04/16 22:58 Urine Bilirubin NEGATIVE (NEGATIVE) 05/04/16 22:58 Urine Urobilinogen NEGATIVE EU (0.2-1.0) 05/04/16 22:58 Ur Leukocyte Esterase NEGATIVE (NEGATIVE) 05/04/16 22:58 Urine RBC 1-3 /hpf (0-3) 05/04/16 22:58 Urine WBC 1-3 /hpf (0-3) 05/04/16 22:58 Ur Epithelial Cells TRACE /lpf (NONE-1+) 05/04/16 22:58 Urine Bacteria TRACE /hpf (NONE SEEN) H 05/04/16 22:58 Ur Culture Indicated? NOT INDICATED (NI) 05/04/16 22:58 Ur Random Creatinine 24.7 mg/dL 05/05/16 09:52 Ur Random Sodium 85 mEq/L (30-90) 05/05/16 09:52 Urine Glucose NEGATIVE (NEGATIVE) 05/04/16 22:58 Hepatitis A IgM Ab NEGATIVE (NEGATIVE) 05/05/16 06:07 Hep Bs Antigen NEGATIVE (NEGATIVE) 05/05/16 06:07 Hep B Core IgM Ab NEGATIVE (NEGATIVE) 05/05/16 06:07 Hepatitis C Antibody NEGATIVE (NEGATIVE) 05/05/16 06:07 HIV 1&2 Antibody NEGATIVE (NEGATIVE) 05/05/16 06:07 Group A Strep Screen NEGATIVE (NEGATIVE) 05/05/16 09:34 Group A Strep DNA NEGATIVE (NEGATIVE) 05/05/16 Unknown Assessment & Plan Assessment: Assessment/Plan: JEANNE: likely prerenal in setting of vomiting, already improving with fluids, Cr down from 2.0 yesterday to 1.3 this afternoon. Unknown baseline. FeNa was 4%, could have had some ATN. - Would continue IVFs. - Will check C3, C4, CK. - JEANNINE pending. - Avoid MOM, morphine, demerol, NSAIDs, contrast, aminoglycosides, fleets, ACEI /ARB, and other nephrotoxins. Hematuria: +1 blood on UA, will send urine culture. Thank you for the interesting consult. Nephrology will continue to follow, please call if you have any additional questions or concerns.
[2016-05-06 07:30] VITALS: O2SAT 92
[2016-05-06] MEDS: ONDANSETRON DISINTEGRATING 4 MG TAB PO PRN ×2 (07:42→11:10)
[2016-05-06] MEDS: oxyCODONE IR 5 MG TAB PO PRN ×2 (07:55→11:13)
--- NOTE | 2016-05-06 10:16 | HOSPPROG ---
Hospitalist Progress Note Assessment/Plan: a 20-year-old male who presented the emergency room with flank pain the pain in been radiating to the right side of his abdomen without any type a testicular pain. A CT scan of the abdomen that was negative for stone but showed some bilateral perinephric stranding and mild hydronephrosis. Today is my 1st encounter with the patient. Chart reviewed. #. Acute renal failure * kidney function improved with hydration * will get a renal panel now to ensure his kidney function is stable * could have some underlying ATN * reviewed his care with the nephrologists and she felt if his kidney function was fine today okay to be discharged * has multiple pending labs/ will have him f/u with nephrology #. Bilateral flank pain * ua shows some bacteria * cx is pending * continues to complain of persistent bilateral flank pain/ he works out and does weight lifting as well as the [employer]. Will get x-rays to rule out anything acute * I encouraged him to try Tylenol and to avoid Percocet #. Obesity * BMI is 33 #. HTN: Patient says this is new to him. Unclear if this is related to pain but should be monitored in the outpatient setting #. persistent nausea * patient uses cannabis daily /she is not having any emesis but this could be an etiology of his nausea * gets good relief with Zofran #. plan. Explained to the patient unless he has adequate intake in I am too concerned to discharge. He understands and I will further evaluate him later today. Subjective: patient continues to have ongoing nausea as well as bilateral flank pain Objective: Vital Signs Temp Pulse Resp BP Pulse Ox 36.9 C 90 22 H 166/94 H 92 05/06/16 07:26 05/06/16 07:26 05/06/16 07:26 05/06/16 07:26 05/06/16 07:26 Laboratory Results 05/05/16 06:07 05/05/16 16:15 05/05/16 05/06/16 05/07/16 05:59 05:59 05:59 Intake Total 7423 Output Total 2850 Balance 4573 - Physical Exam Constitutional: no apparent distress, appears nourished, No not in pain Eyes: PERRL Ears, Nose, Mouth, Throat: hearing normal Cardiovascular: regular rate and rhythym, tachycardia Respiratory: no respiratory distress Gastrointestinal: normoactive bowel sounds Genitourinary: other ( positive flank pain bilaterally) Skin: warm Musculoskeletal: full muscle strength Neurologic: AAOx3 Psychiatric: interacting appropriately, not anxious ICD10 Worksheet Patient Problems: Problems Problem Status Diagnosed Abdominal pain Acute Acute kidney injury (nontraumatic) Acute Flank pain Acute
--- NOTE | 2016-05-06 10:46 | SOAPPROG ---
SOAP Progress Note Assessment/Plan: Assessment/Plan: JEANNE: likely prerenal in setting of vomiting, already improving with fluids, Cr down from 2.0 to 1.3 yesterday afternoon. Unknown baseline. FeNa was 4%, could have had some ATN. He is nonoliguric with good renal output. - JEANNINE, C3, C4 pending. - Please check renal function panel today. Hematuria: urine culture pending. Subjective: No acute events overnight. Pt still with some pain but not bad, nausea improved , he is hoping to go home today. Objective: Vital Signs Temp Pulse Resp BP Pulse Ox 36.9 C 90 22 H 166/94 H 92 05/06/16 07:26 05/06/16 07:26 05/06/16 07:26 05/06/16 07:26 05/06/16 07:26 Laboratory Results 05/05/16 06:07 05/05/16 05/06/16 05/07/16 05:59 05:59 05:59 Intake Total 7423 Output Total 2850 Balance 4573 General: alert and oriented, no acute distress Eyes; EOMI, PERRL OP: Clear CV: RRR Resp: CTA bilat, nonlabored respirations on RA Abd: Soft, NT/ND Ext: no edema Neuro: CN II-XII grossly intact, no asterixis Psych: cooperative, appropriate mood and affect ICD10 Worksheet Patient Problems: Problems Problem Status Diagnosed Abdominal pain Acute Acute kidney injury (nontraumatic) Acute Flank pain Acute
[2016-05-06 11:27] LABS: ALBUMIN 3.4 g/dL (3.5-5.0); ANION GAP 8 mEq/L (8-16); CALCIUM 8.7 mg/dL (8.5-10.4); CARBON DIOXIDE 27 mEq/l (22-31); CHLORIDE 102 mEq/L (97-110); CREATININE 1.2 mg/dL (0.7-1.3); GLOMERULAR FILTRATION RATE > 60; GLUCOSE 89 mg/dL (70-100); POTASSIUM 3.9 mEq/L (3.5-5.2); SODIUM 137 mEq/L (134-144)
[2016-05-06 15:08] VITALS: BP 165/110; PULSE 85; RESP 20; TEMP 98.5
--- NOTE | 2016-05-06 16:46 | DX ---
Two-view Thoracic Spine Standing Reason for examination: Back pain Findings: Vertebral body heights are well-maintained. No fracture is identified. The bone alignment i s normal. Paravertebral soft tissues are normal. Impression: Negative thoracic spine.
--- NOTE | 2016-05-06 16:57 | DX ---
Lumbar Spine, AP and Lateral Views 12:36 p.m. Clinical History: 20-year-old male who has been experiencing pain at the T12-L1 junction, with no spe cific antecedent trauma. Comparison Studies: Thoracic spine radiographs from earlier this afternoon, and CT imaging of the abd omen and pelvis dated May 02, 2016. Findings: There are five non-ribbearing lumbar-type vertebral bodies. The vertebral body heights and posterior alignments are maintained. The disk spaces are preserved. The interpediculate distances are appropriate. The sacral arcuate lines are well-contoured, and the symphysis pubis and SI joints are normal, with no diastasis. The lumbar transverse processes and spinous processes appear intact. Impression: Normal exam.
--- NOTE | 2016-05-06 19:23 | GDS ---
[f rep st] DISCHARGE SUMMARY DISCHARGE DIAGNOSES: 1. Acute renal failure/likely acute tubular necrosis. 2. Bilateral flank pain. 3. Obesity. 4. Hypertension. 5. Nausea. CONSULTATIONS: Orquidea Hilton MD with Nephrology Services. BRIEF HISTORY: The patient is a 20-year-old male who was seen in the emergency room 2 days ago for right-sided flank pain which was radiating to the right side of his abdomen. He had no testicular pain. At that time, he had a CT scan that was negative, but it did show some bilateral perinephric stranding with mild hydronephrosis. His urinalysis was negative for infection. He was treated for nausea and discharged from the emergency room. He presented again and was noted to be in acute renal failure. It is likely that he was dehydrated. His urinalysis was negative, essentially ruling out pyelonephritis. Subsequently, he had an abdominal/pelvic ultrasound performed which showed mild increase in renal echogenicity which was a nonspecific finding. He was seen and evaluated by the [employer]. HOSPITAL COURSE BY PROBLEM: 1. Acute renal failure. His kidney function improved with hydration. It was likely secondary to ATN. He has multiple labs pending. I am recommending that he follow up with Nephrology. 2. Bilateral flank pain. Urine culture showed nothing acute. X-rays did not show anything acute. Pain is well controlled with Tylenol. 3. Obesity. BMI is 33. 4. Hypertension. He says this is new to him. I am not clear if he had some pain related to this, but I have recommended that he follow up with Dr. Bedolla and get further evaluation. 5. Persistent nausea. He uses cannabis daily. He gets good relief with Zofran. PENDING LABS: There are multiple labs pending. CONDITION AT DISCHARGE: Stable. Blood pressure is 166/94, heart rate is 90, respiratory rate of 22, O2 saturation on room air 92%, temperature is 36.9 Celsius. MEDICATIONS AT DISCHARGE: Please see the EMR. DISCHARGE INSTRUCTIONS: 1. I have recommended that he needs to get more followup in regard to his hypertension and pending labs. I encouraged him to stay another midnight. He declined. 2. I have encouraged him to try cutting back on cannabis. This could be causing much of the etiology of his nausea. 3. Repeat chemistry panel next week with Dr. Bedolla. /[id number]/MODL MTDD
[2016-05-08 08:59] LABS: C3 COMPLEMENT COMPONENT 109 mg/dL (75 - 175); C4 COMPLEMENT COMPONENT 28 mg/dL (14 - 40)
== END 2016-05-06 18:01 | disposition home or self-care (01) ==
LOC: F3E 05-05 12:02
PROVIDERS: ADMIT Internal Medicine; ATTEND Internal Medicine
DX: N17.9 Acute kidney failure, unspecified (principal); R10.84 Generalized abdominal pain; M54.9 Dorsalgia, unspecified; E66.9 Obesity, unspecified; I10 Essential (primary) hypertension; R11.0 Nausea; Z68.33 Body mass index [BMI] 33.0-33.9, adult; F12.10 Cannabis abuse, uncomplicated; Z87.440 Personal history of urinary (tract) infections
CPT/HCPCS: 72072; 72100; 76770; 96361; 96374; 96375; 96376; 99285; G0378; J2405; J2550; J3010

== ENCOUNTER 2016-05-09 09:48 | Observation (INO) | payer OTHER ==
--- NOTE | 2016-05-09 10:08 | EDPHY ---
H & P Stated Complaint: kidney/abd pain seen x2 for this Time Seen by Provider: 05/09/16 10:06 HPI/ROS: CHIEF COMPLAINT: Nausea and abdominal pain HISTORY OF PRESENT ILLNESS: 20-year-old male with history of recent hospitalization for acute renal failure believed to be likely secondary to acute tubular necrosis, returns to the emergency department via private vehicle complaining of return of his nausea and bilateral lower abdominal pain, right greater than left, since last evening. Not thunderclap pain. He has vomited once since being discharged a few days ago but has since been able to tolerate oral intake. He is self-described constipation but did have a bowel movement this morning with no melena or hematochezia. There is no radiation of his pain. He has no complaints of flank pain. No nuchal rigidity. No testicular pain. REVIEW OF SYSTEMS: A ten point review of systems was performed and is negative with the exception of the items mentioned in the HPI PAST MEDICAL & SURGICAL HISTORY: Recent hospitalization for acute renal failure likely secondary to acute tubular necrosis SOCIAL HISTORY: daily cannabis . Student PHYSICAL EXAM (Prior to examination, patient consented to physical exam, hands were washed and my usual and customary physical exam procedures followed) 1) GENERAL: Well-developed, well-nourished, alert and oriented. Appears nontoxic. Appears uncomfortable 2) HEAD: Normocephalic, atraumatic 3) HEENT: Pupils equal, round, reactive to light bilaterally. Sclera anicteric. Nasopharynx, oropharynx, clear, no lesions. Moist mucous membranes Ears bilaterally with normal tympanic membranes. 4) NECK: Full range of motion, no meningeal signs. 5) LUNGS: Clear auscultation bilaterally, no wheezes, no rhonchi, no retractions. 6) HEART: Regular rate and rhythm, no murmur, no heave, no gallop. 7) ABDOMEN: No guarding, tender to palpation bilateral lower quadrant and left upper quadrant, positive McBurney's point pain, negative Rodrigues's, negative peritoneal sign, 8) MUSCULOSKELETAL: Moving all extremities, no focal areas of tenderness, no obvious trauma. No peripheral edema or discoloration. 9) BACK: Positive left CVA tenderness, no midline vertebral tenderness, no fluctuance, no step-off, no obvious trauma, no visual or palpable abnormality. 10) SKIN: No rash, no petechiae. 11) : Normal male external genitalia no urethral discharge bilateral cremasteric reflex present and equal DIFFERENTIAL DIAGNOSIS: My differential diagnosis includes, but is not limited to, acute appendicitis, acute cholecystitis, bowel obstruction, acute pancreatitis, testicular torsion, gastritis and urinary tract infection. - Personal History Current Tetanus/Diphtheria Vaccine: Yes - Medical/Surgical History Hx Asthma: No Hx Chronic Respiratory Disease: No Hx Diabetes: No Hx Cardiac Disease: No Hx Renal Disease: No Hx Cirrhosis: No Hx Alcoholism: No Hx HIV/AIDS: No Hx Splenectomy or Spleen Trauma: No Other PMH: PMH:kidney infection. PSH:dental - Social History Smoking Status: Never smoked Constitutional: Initial Vital Signs Temperature (C) 36.8 C 05/09/16 09:51 Heart Rate 77 05/09/16 09:51 Respiratory Rate 18 05/09/16 09:51 Blood Pressure 150/96 H 05/09/16 09:51 O2 Sat (%) 95 05/09/16 09:51 O2 Delivery Mode Room Air Allergies/Adverse Reactions: No Known Allergies Allergy (Verified 05/09/16 09:49) Home Medications: Medication Instructions Recorded Ondansetron Odt [Zofran Odt 4 mg 4 mg PO Q4HRS PRN #10 tab 05/06/16 (*)] Medical Decision Making ED Course/Re-evaluation: 10:19 a.m.: I have reviewed the patient's old medical records including recent hospitalization. Will repeat laboratory studies and re-evaluate. also reviewed his negative urine culture from admission. 12:28 p.m.: Re-evaluation. Re-examined his abdomen. He is tender to palpation McBurney's point. Discussed his other laboratory results. Recommended CT imaging As I expressed my concern over possible acute appendicitis.. Indications risks benefits discussed with patient verbalizes consent. 1:50 p.m.: Discussed case Dr. Mohan Reyna. Discussed with the patient's diagnostic results showing significant perinephric stranding, splenomegaly. Difficulty in obtaining adequate pain control in this patient. I think that admission is indicated given his abnormal CT findingsand pain control issues. Phone consultation with hospitalist Kayli, admit to Dr. Solis. - Data Points Laboratory Results: Laboratory Results 05/09/16 11:17 05/09/16 10:08 05/09/16 05/09/16 05/09/16 13:08 11:55 11:17 WBC 9.50 10^3/uL (3.80-9.50) RBC 4.44 10^6/uL (4.40-6.38) Hgb 14.2 g/dL (13.7-17.5) Hct 38.1 L % (40.0-51.0) MCV 85.8 fL (81.5-99.8) MCH 32.0 pg (27.9-34.1) MCHC 37.3 H g/dL (32.4-36.7) RDW 11.4 L % (11.5-15.2) Plt Count 256 10^3/uL (150-400) MPV 8.2 L fL (8.7-11.7) Neut % (Auto) 69.4 % (39.3-74.2) Lymph % (Auto) 18.4 % (15.0-45.0) [place] % (Auto) 8.9 % (4.5-13.0) Eos % (Auto) 2.6 % (0.6-7.6) Baso % (Auto) 0.3 % (0.3-1.7) Nucleat RBC Rel Count 0.0 % (0.0-0.2) Absolute Neuts (auto) 6.58 H 10^3/uL (1.70-6.50) Absolute Lymphs (auto) 1.75 10^3/uL (1.00-3.00) Absolute Monos (auto) 0.85 H 10^3/uL (0.30-0.80) Absolute Eos (auto) 0.25 10^3/uL (0.03-0.40) Absolute Basos (auto) 0.03 10^3/uL (0.02-0.10) Absolute Nucleated RBC 0.00 10^3/uL (0-0.01) Immature Gran % 0.4 % (0.0-1.1) Immature Gran # 0.04 10^3/uL (0.00-0.10) Sodium Potassium Chloride Carbon Dioxide Anion Gap BUN Creatinine Estimated GFR Glucose Calcium Total Bilirubin Conjugated Bilirubin Unconjugated Bilirubin AST ALT Alkaline Phosphatase Total Protein Albumin Lipase Urine Color PALE YELLOW Urine Appearance CLEAR Urine pH 7.0 (5.0-7.5) Ur Specific [place] 1.005 (1.002-1.030) Urine Protein NEGATIVE (NEGATIVE) Urine Ketones NEGATIVE (NEGATIVE) Urine Blood 1+ H (NEGATIVE) Urine Nitrate NEGATIVE (NEGATIVE) Urine Bilirubin NEGATIVE (NEGATIVE) Urine Urobilinogen NEGATIVE EU (0.2-1.0) Ur Leukocyte Esterase NEGATIVE (NEGATIVE) Urine RBC 1-3 /hpf (0-3) Urine WBC 1-3 /hpf (0-3) Ur Epithelial Cells NONE SEEN /lpf (NONE-1+) Urine Bacteria NONE SEEN /hpf (NONE SEEN) Urine Mucus NONE SEEN /lpf (NONE-1+) Urine Glucose NEGATIVE (NEGATIVE) Monos[place] NEGATIVE (NEGATIVE) 05/09/16 10:08 WBC REJ RBC REJ Hgb REJ Hct REJ MCV REJ MCH REJ MCHC REJ RDW REJ Plt Count REJ MPV REJ Neut % (Auto) REJ Lymph % (Auto) REJ [place] % (Auto) REJ Eos % (Auto) REJ Baso % (Auto) REJ Nucleat RBC Rel Count REJ Absolute Neuts (auto) REJ Absolute Lymphs (auto) REJ Absolute Monos (auto) REJ Absolute Eos (auto) REJ Absolute Basos (auto) REJ Absolute Nucleated RBC REJ Immature Gran % REJ Immature Gran # REJ Sodium 141 mEq/L (134-144) Potassium 4.2 mEq/L (3.5-5.2) Chloride 104 mEq/L (97-110) Carbon Dioxide 25 mEq/l (22-31) Anion Gap 12 mEq/L (8-16) BUN 12 mg/dL (7-23) Creatinine 1.2 mg/dL (0.7-1.3) Estimated GFR > 60 Glucose 87 mg/dL (70-100) Calcium 9.6 mg/dL (8.5-10.4) Total Bilirubin 0.9 mg/dL (0.1-1.4) Conjugated Bilirubin 0.3 mg/dL (0.0-0.5) Unconjugated Bilirubin 0.6 mg/dL (0.0-1.1) AST 25 IU/L (17-59) ALT 44 IU/L (21-72) Alkaline Phosphatase 65 IU/L (38-126) Total Protein 7.5 g/dL (6.3-8.2) Albumin 4.4 g/dL (3.5-5.0) Lipase 286.0 IU/L (23-300) Urine Color Urine Appearance Urine pH Ur Specific [place] Urine Protein Urine Ketones Urine Blood Urine Nitrate Urine Bilirubin Urine Urobilinogen Ur Leukocyte Esterase Urine RBC Urine WBC Ur Epithelial Cells Urine Bacteria Urine Mucus Urine Glucose Monoscreen Medications Given: Discontinued Medications Hydromorphone HCl (Dilaudid) 1 mg IVP EDNOW ONE Stop: 05/09/16 10:17 Last Admin: 05/09/16 10:46 Dose: 1 mg Sodium Chloride (Ns) 1,000 mls @ 0 mls/hr IV ONCE ONE PRN Reason: Wide Open Stop: 05/09/16 10:17 Last Admin: 05/09/16 10:46 Dose: 1,000 mls Ondansetron HCl (Zofran) 4 mg IVP EDNOW ONE Stop: 05/09/16 10:17 Last Admin: 05/09/16 10:47 Dose: 4 mg Departure - Departure Disposition: [facility] Inpatient Acute Clinical Impression: perinephric stranding, intractable flank pain Condition: Fair
[2016-05-09] MEDS ORDERED: ONDANSETRON 4 MG/2 ML VIAL IVP ONE (10:16)
[2016-05-09] MEDS ORDERED: NS 1,000 ML IV ONE ×2 (10:16→15:44)
[2016-05-09] MEDS ORDERED: HYDROmorphONE/DILAUDID 1 MG/ML SYR IVP ONE ×2 (10:16→13:38)
[2016-05-09 10:35] LABS: ALANINE AMINOTRANSFERASE 44 IU/L (21-72); ALBUMIN 4.4 g/dL (3.5-5.0); ALKALINE PHOSPHATASE 65 IU/L (38-126); ANION GAP 12 mEq/L (8-16); ASPARTATE AMINOTRANSFERASE 25 IU/L (17-59); BILIRUBIN,TOTAL 0.9 mg/dL (0.1-1.4); BILIRUBIN-CONJUGATED 0.3 mg/dL (0.0-0.5); BILIRUBIN-UNCONJUGATED 0.6 mg/dL (0.0-1.1); CALCIUM 9.6 mg/dL (8.5-10.4); CARBON DIOXIDE 25 mEq/l (22-31); CHLORIDE 104 mEq/L (97-110); CREATININE 1.2 mg/dL (0.7-1.3); GLOMERULAR FILTRATION RATE > 60; GLUCOSE 87 mg/dL (70-100); POTASSIUM 4.2 mEq/L (3.5-5.2); SODIUM 141 mEq/L (134-144); TOTAL PROTEIN 7.5 g/dL (6.3-8.2)
[2016-05-09 11:26] LABS: % IMMATURE GRANULYOCYTES 0.4 % (0.0-1.1); ABSOLUTE IMMATURE GRANULOCYTES 0.04 10^3/uL (0.00-0.10); ADD DIFF? NO; ADD MORPH? NO; ADD SCAN? NO; ATYPICAL LYMPHOCYTE FLAG 10 (0-99); FRAGMENT RBC FLAG 0 (0-99); HEMATOCRIT 38.1 % (40.0-51.0); HEMOGLOBIN 14.2 g/dL (13.7-17.5); LEFT SHIFT FLG 10 (0-99); LIPEMIA HEMOLYSIS FLAG 90 (0-99); MEAN CELL HEMOGLOBIN CONCENTR. 37.3 g/dL (32.4-36.7); MEAN CELL VOLUME 85.8 fL (81.5-99.8); MEAN PLATELET VOLUME 8.2 fL (8.7-11.7); PLATELET CLUMPS FLAG 0 (0-99); PLATELET COUNT 256 10^3/uL (150-400); RED BLOOD CELL COUNT 4.44 10^6/uL (4.40-6.38); RED CELL DISTRIBUTION WIDTH 11.4 % (11.5-15.2)
[2016-05-09 12:04] LABS: COLOR PALE YELLOW; LEUKOCYTE ESTERASE,URINE NEGATIVE (NEGATIVE); NITRITE,URINE NEGATIVE (NEGATIVE)
[2016-05-09 12:16] LABS: BACTERIA NONE SEEN /hpf (NONE SEEN); MUCUS NONE SEEN /lpf (NONE-1+)
[2016-05-09] MEDS ORDERED: IOPAMIDOL (ISOVUE-300) 50 ML VIAL IV ONE (12:48)
[2016-05-09] MEDS ORDERED: ONDANSETRON DISINTEGRATING 4 MG TAB PO PRN (14:07)
[2016-05-09] MEDS ORDERED: ONDANSETRON 4 MG/2 ML VIAL IVP PRN (14:07)
[2016-05-09] MEDS ORDERED: ACETAMINOPHEN 325 MG TAB PO PRN (14:07)
[2016-05-09] MEDS ORDERED: NS 1,000 ML IV SCH (14:15)
--- NOTE | 2016-05-09 15:23 | CT ---
CT Scan of the Abdomen and Pelvis (With Contrast) CLINICAL HISTORY: 20-year-old male with recurrent right flank pain, recently treated for pyelonephrit is. Rule out appendicitis. The patient's urinalysis today revealed some hematuria, but no pyuria. TECHNIQUE: Neither oral nor retrograde rectal contrast was administered. The patient received 90 cc o f IV Isovue-300 without complication, and a multidetector CT scan was obtained from the lung bases in feriorly through the proximal femora, with images reformatted at 5.00 and 1.50 mm increments, and rev iewed at a variety window/level settings. Sagittal and paracoronal reconstructed images are reviewed on a workstation. The DFOV is 38 cm. A dose reduction protocol was used. COMPARISON STUDIES: Renal sonography, dated 05/05/2016, and unenhanced CT imaging of the abdomen and p parminder dated 05/02/2016. FINDINGS: Contrast-Enhanced CT Scan of the Abdomen: The lung bases are clear. There is no pleural or pericardia l effusion. The liver is normal in size and homogeneous in attenuation. The spleen is enlarged, measu ring 15.0 x 5.0 x 12.5 cm. There are several shotty mesenteric lymph nodes seen throughout the mesent coral on coronal series 5, image 33. The gallbladder is moderately distended. The pancreatic contour is normal. The adrenal glands are normal. There is mild bilateral nephromegaly, and there are geographi c areas of striation, most consistent with pyelonephritis. There is no obstructive uropathy or nephro lithiasis. The right ureter is mildly more prominent than the left; however, there is no point of obs truction, and there is no significant calyceal dilatation. There is a normal appearance of the append ix, seen on series 4, images 136-159. There is no ascites. The abdominal aorta and the IVC are normal in caliber. The splenic vein, superior mesenteric vein, and the main portal vein are patent. The CT appearance of small and large bowel is unremarkable. The osseous structures are age-appropriate. Contrast-Enhanced CT Scan of the Pelvis: The urinary bladder is moderately distended. The prostate gl and and seminal vesicles are normal. There are no urinary bladder or distal ureteral calculi. The CT appearance of small and large bowel is unremarkable. IMPRESSION: 1. The CT findings are most suggestive of bilateral pyelonephritis; however, there is no evidence of a perinephric abscess. 2. Splenomegaly. 3. Normal CT appearance of the appendix. Results were discussed with Tej Padilla PA-C. A Document Only message has been documented in the [employer] [facility] Critical Result system on 017 13:34, Message ID [id number].
[2016-05-09] MEDS: OXYCODONE/APAP 5/325 TAB PO PRN ×2 (16:12→20:36)
--- NOTE | 2016-05-09 16:14 | GHP ---
[f rep st] HISTORY AND PHYSICAL DATE OF ADMISSION: 05/09/2016 CHIEF COMPLAINT: Flank pain. HISTORY OF PRESENT ILLNESS: A 20-year-old male presenting with complaints of left flank pain, abdominal discomfort and fatigue. The patient was admitted just recently on 05/05/2016 with complaints of a GI illness, found to have an acute kidney injury, discharged home with improving renal function, and is returning now 3 days later with persistent flank discomfort after completion of his pain medications at home. The patient reports subjective fevers, no chills, although he has not measured any fevers in the outpatient setting. Endorses decreased nausea since his last presentation has tolerated normal intake, both fluid and solid food. Denies any diarrhea. Denies any hematuria. Reports normal urination with normal color of his urine. Denies any headache or vision changes. Has felt more fatigued since his first hospitalization. Denies any lower extremity edema, any new rashes, any known sick contacts. PAST MEDICAL HISTORY: 1. Recent acute kidney injury thought secondary to dehydration from gastroenteritis. 2. BMI of 33, qualifying for obesity. 3. Recent bilateral flank pain. SOCIAL HISTORY: Negative for tobacco. Patient drinks rare alcohol, but when he does can binge. Denies illicit drugs. Denies any IV drug use. Does report frequent marijuana use. FAMILY HISTORY: Negative for any known renal dysfunction. REVIEW OF SYSTEMS: 10-point review of systems is negative with the exception of that reported in the HPI. PHYSICAL EXAMINATION: VITAL SIGNS: Blood pressure 152/92, heart rate 77, respiratory rate 18, 96% on room air, temperature 36.8. GENERAL: This is a healthy-appearing young male in no acute distress. HEENT: Notable for dry mucous membranes. Eye exam is negative for any icterus. CARDIAC: Patient is regular rate and rhythm. No murmur, gallop or rub is appreciated. PULMONARY: Patient has good respiratory effort, is clear to auscultation bilaterally. GASTROINTESTINAL: Positive bowel sounds. ABDOMEN: Soft. The patient is nontender to palpation all 4 quadrants. The patient does have bilateral CVA tenderness. MUSCULOSKELETAL: Negative for any lower extremity edema. SKIN: Negative for any rashes. NEUROLOGIC: He is alert and oriented x3. PSYCHIATRIC : He is cooperative on interview and examination. DATA: White count 9.5, hematocrit 38.1, platelet count of 257. Creatinine is 1.2, down from 1.3 at discharge and 2.0 at the peak. Urinalysis today shows 1+ blood, 1-3 red blood cells, 1-3 white blood cells. [place] screen is negative. Recent strep A is negative. Complement C3 and C4 are both within normal limits when last checked, as well as a CK. IMAGING: CT of the abdomen, which I personally reviewed and interpreted, shows nephromegaly with what Radiology describes as geographic areas of striation, but no perinephric stranding. Urine culture from the patient's last hospitalization is final and grew no organisms. ASSESSMENT AND PLAN: This is a 20-year-old male presenting with bilateral flank pain and recent acute kidney injury. 1. Bilateral flank pain. The patient does show some enlargement of his kidneys on CT imaging. Urinalysis and urine culture both are negative for active infection. Suspect that whatever is causing the patient's acute kidney injury, presumably dehydration, is contributing to his swelling and discomfort. We will treat with p.r.n. pain medication and follow the patient's clinical course. 2. Resolving acute kidney injury. The patient's renal function has remained stable, improved from his initial presentation. Will provide a small additional amount of IV fluid resuscitation and follow patient's renal function in the morning. Initial laboratory workup has been negative. Nephrology has been made aware of the patient's readmission and will follow along. 3. Hypertension. Again, presumed likely related to the patient's acute kidney injury. Recommendations from Dr. Montes were to treat his pain. If remaining hypertensive, then initiate a calcium channel li. 4. Prophylaxis. Lovenox unless the patient ambulates effectively. Diet as he tolerates. DISPOSITION: I expect less than 2 midnights if the patient responds well to pain management, fluid resuscitation and remains stable. Discussed the case with Dr. Montes from Nephrology. They will follow along. /[id number]/MODL MTDD
[2016-05-09 18:38] LABS: PHENCYCLIDINE URINE BCH < 6 ng/ml (NEGATIVE); PHENCYCLIDINE URINE BCH NEGATIVE (NEGATIVE)
[2016-05-09 19:02] LABS: TETRAHYDROCANNABINOL URINE 685 ng/mL (NEGATIVE)
[2016-05-09 19:03] LABS: TETRAHYDROCANNABINOL URINE 685 ng/mL (NEGATIVE)
[2016-05-09 23:45] VITALS: RESP 16
[2016-05-10] MEDS ORDERED: ZOLPIDEM TARTRATE 5 MG TAB PO PRN (00:15)
[2016-05-10] MEDS: OXYCODONE/APAP 5/325 TAB PO PRN ×4 (00:40→17:06)
[2016-05-10 05:35] LABS: % IMMATURE GRANULYOCYTES 0.4 % (0.0-1.1); ABSOLUTE IMMATURE GRANULOCYTES 0.04 10^3/uL (0.00-0.10); ADD DIFF? NO; ADD MORPH? NO; ADD SCAN? NO; ATYPICAL LYMPHOCYTE FLAG 20 (0-99); FRAGMENT RBC FLAG 0 (0-99); HEMATOCRIT 39.7 % (40.0-51.0); HEMOGLOBIN 14.7 g/dL (13.7-17.5); LEFT SHIFT FLG 0 (0-99); LIPEMIA HEMOLYSIS FLAG 90 (0-99); MEAN CELL VOLUME 86.3 fL (81.5-99.8); MEAN PLATELET VOLUME 8.4 fL (8.7-11.7); PLATELET CLUMPS FLAG 0 (0-99); PLATELET COUNT 265 10^3/uL (150-400); RED CELL DISTRIBUTION WIDTH 11.2 % (11.5-15.2)
[2016-05-10 06:05] LABS: ANION GAP 12 mEq/L (8-16); CARBON DIOXIDE 24 mEq/l (22-31); CHLORIDE 105 mEq/L (97-110); CREATININE 1.1 mg/dL (0.7-1.3); GLOMERULAR FILTRATION RATE > 60; GLUCOSE 74 mg/dL (70-100); POTASSIUM 4.3 mEq/L (3.5-5.2); SODIUM 141 mEq/L (134-144)
[2016-05-10 16:33] VITALS: BP 132/79; PULSE 81; TEMP 98.4; O2SAT 96
--- NOTE | 2016-05-10 22:13 | GDS ---
[f rep st] DISCHARGE SUMMARY DISCHARGE DIAGNOSES: 1. Acute kidney injury presumed secondary to dehydration. 2. Elevated blood pressure presumed secondary to acute kidney injury. 3. Nephromegaly presumed secondary to acute kidney injury. HISTORY OF PRESENT ILLNESS: This is a 20-year-old male with no significant past medical history who presented on hospitalization prior to this with complaints of GI illness and dehydration, found to skinner ve an acute kidney injury, then re-presenting with persistent flank pain and noted to have elevated b lood pressures. For details of the patient's 2nd admission, please see the history and physical date d 05/09/2016. CONSULTATIVE SERVICES: Nephrology was curb-sided. PROCEDURES: CT of the abdomen was performed 05/09/2016 which showed nephromegaly with no significant perinephric stranding, but infrarenal striations. HOSPITAL COURSE BY ISSUE: 1. Acute kidney injury. Patient's renal function had improved and remained improved on readmission this time. Patient received additional fluid resuscitation, had his creatinine improved to 1.1 on day of disposition. He is to follow with labs and blood pressure check in 2 days' time post discha rge with his primary care and ultimately in 7-10 days with Outpatient Nephrology. 2. Flank pain. Presumed secondary to nephromegaly seen on imaging which we linked to his acute kidn ey presentation. Patient was presumed to have ATN, but may have had an alternate explanation for his original acute kidney injury. Regardless, the patient is receiving p.r.n. low-dose pain medication until resolution of his pain. We provided several days' worth so he can follow with his outpatient p magali. 3. Elevated blood pressures. These did fluctuate. After discussion with Nephrology, they were not concerned about the patient having complications related to blood pressures in the 150s. They prefer that he is sent out without medications and followed in the outpatient clinic. He has an appointmen t to see Dr. Bedolla 2 days post discharge and ultimately with the nephrologists, to schedule an appo intment within 2 weeks. MEDICATIONS AT TIME OF DISPOSITION: Please reference medication reconciliation printed on 05/10/2016 . PENDING STUDIES AT TIME OF DICTATION: None. FOLLOWUP APPOINTMENTS: 1. With Dr. Bedolla this week for 1st labs and blood pressure check. 2. With Nephrology for long-term followup of his acute kidney injury, nephromegaly, and hypertension . TIME SPENT: I spent greater than 30 minutes in the planning and coordination of this discharge. /[id number]/MODL
== END 2016-05-10 18:05 | disposition home or self-care (01) ==
LOC: INTOOBSV 13:54 → F3E 15:04
PROVIDERS: ADMIT Hospitalist; ATTEND Hospitalist
DX: N17.9 Acute kidney failure, unspecified (principal); E86.0 Dehydration; R03.0 Elevated blood-pressure reading, without diagnosis of hypertension
CPT/HCPCS: 74177; 96361; 96374; 96375; 96376; 99285; G0378; 80307; 83835-90; G0480; J1170; J2405; Q9967